=== PATIENT | male | born 1990 | race Caucasian/White ===

== ENCOUNTER 2021-01-02 11:36 | Emergency (ER) | payer OTHER ==
[~2021-01-02] VITALS: Ht 182.9 cm; Wt 77.1 kg
[~2021-01-02 11:36] MED LIST: ALBU90OI; CEPH250A PO; CEPH500 PO; HYDHCL10 PO; PRED20 PO
[2021-01-02] MEDS ORDERED: TEMOVATE15 G1 TOP (12:00)
== END 2021-01-02 12:27 | disposition home or self-care (01) ==
LOC: ER 11:36
DX: L23.7 Allergic contact dermatitis due to plants, except food (principal)
CPT/HCPCS: 96372; 99283-25; J3301

== ENCOUNTER → 2022-09-08 | Outpatient (CLI) | payer OTHER ==
[~2022-09-08] MED LIST changes: +TEMOVATE15 G1 TOP
== END | disposition home or self-care (01) ==
LOC: LAB SHORT 17:43
DX: R35.0 Frequency of micturition (principal); R30.0 Dysuria
CPT/HCPCS: 87086

== ENCOUNTER 2024-06-20 09:15 | Emergency (ER) | payer OTHER ==
[~2024-06-20] VITALS: Ht 190.5 cm; Wt 97.5 kg
[2024-06-20 09:53] VITALS: BP 125/85
[2024-06-20] MEDS ORDERED: Tetracaine HCl/Pf 0.5% Opth Soln 4 ml LEFTEYE ONE (09:55)
== END 2024-06-20 10:10 | disposition home or self-care (01) ==
LOC: ER 09:15
DX: T15.02XA Foreign body in cornea, left eye, initial encounter (principal); J45.909 Unspecified asthma, uncomplicated; F17.220 Nicotine dependence, chewing tobacco, uncomplicated; W44.D0XA Magnetic metal object unspecified, entering into or through a natural orifice, initial encounter; Z79.52 Long term (current) use of systemic steroids
CPT/HCPCS: 99283